=== PATIENT | male | born 1945 | race Caucasian/White ===

== ENCOUNTER 2016-08-08 10:44 | Observation (INO) | payer OTHER ==
[2016-08-08] MEDS ORDERED: TDAP ADULT 0.5 ML INJ (BOOSTRIX) IM ONE (11:18)
[2016-08-08] MEDS ORDERED: ceFAZolin 1 GM in NS 100 ML IV ONE (11:18)
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
[2016-08-08] MEDS ORDERED: CEFAZOLIN 1 GM/DEXTROSE/50 ML BAG IV ONE (12:16)
[2016-08-08] MEDS ORDERED: ONDANSETRON 4 MG/2 ML VIAL IVP PRN (12:30)
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
[2016-08-08] MEDS: D5W 1/2 NS 1,000 ML IV SCH (15:35)
[2016-08-08] MEDS: HYDROCODONE/APAP 5/325 TAB PO PRN ×2 (15:43→22:53)
[2016-08-08] MEDS: LISINOPRIL 20 MG TAB PO SCH (20:45)
[2016-08-08] MEDS: metFORMIN HCL 500 MG TAB PO SCH (20:45)
[2016-08-08] MEDS ORDERED: ATORVASTATIN CALCIUM 10 MG TAB PO SCH (21:00)
[2016-08-09] MEDS: D5W 1/2 NS 1,000 ML IV SCH (01:46)
--- NOTE | 2016-08-09 04:24 | SOAPPROG ---
SOAP Progress Note Assessment/Plan: Assessment: cervical collar cleared clinically by me 08/08/16 at 1900 Plan: 08/09/16 04:24 Objective: Vital Signs Temp Pulse Resp BP Pulse Ox 36.7 C 70 16 133/64 H 94 08/08/16 23:07 08/08/16 23:07 08/08/16 23:07 08/08/16 23:07 08/08/16 23:07 08/07/16 08/08/16 08/09/16 05:59 05:59 05:59 Intake Total 254 Output Total 350 Balance -96 ICD10 Worksheet Patient Problems: Problems Problem Status Onset Head injury due to trauma Acute Leg laceration Acute
[2016-08-09] MEDS ORDERED: LEVOTHYROXINE 112 MCG TAB PO SCH (06:00)
[2016-08-09 07:57] VITALS: RESP 16; TEMP 98.1
[2016-08-09] MEDS ORDERED: amLODIPine BESYLATE 5 MG TAB PO SCH (09:00)
[2016-08-09 11:39] VITALS: BP 141/85
[2016-08-09] MEDS: metFORMIN HCL 500 MG TAB PO SCH (11:39)
[2016-08-09] MEDS: LISINOPRIL 20 MG TAB PO SCH (11:39)
[2016-08-09] MEDS ORDERED: PNEUMOC 13-VAL CONJ-DIP CRM/PF 0.5 ML SYR IM ONE (12:36)
[2016-08-09 14:12] VITALS: PULSE 70; O2SAT 93
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
== END 2016-08-09 14:42 | disposition home or self-care (01) ==
LOC: EDUNIT# → EEVIPCON 11:59 → F3E 14:19
PROVIDERS: ADMIT Surgery; ATTEND Surgery
PROC: 0HQKXZZ Repair Right Lower Leg Skin, External Approach (ICD-10-PCS; principal; 2016-08-08)
DX: S81.811A Laceration without foreign body, right lower leg, initial encounter (principal); S09.90XA Unspecified injury of head, initial encounter; M25.562 Pain in left knee; R41.82 Altered mental status, unspecified; V79.40XA Driver of bus injured in collision with unspecified motor vehicles in traffic accident, initial encounter; Y92.414 Local residential or business street as the place of occurrence of the external cause; Y99.0 Civilian activity done for income or pay; I10 Essential (primary) hypertension; E78.5 Hyperlipidemia, unspecified; E03.9 Hypothyroidism, unspecified; Z23 Encounter for immunization
CPT/HCPCS: 12002; 70450; 72125; 73564; 73590; 90471; 92523; 97161; 97165; G0378; G8978; G8979; G8980; G8987; G8988; G8989; G9165; G9166; 82947-QW; 96365; G0009; G0390; J0690; L0172